=== PATIENT | female | born 1990 | race Caucasian/White ===

== ENCOUNTER 2017-01-20 17:55 | Emergency (ER) | payer OTHER ==
--- NOTE | ~2017-01-20 | CT2 ---
[facility] A Service of [facility] / [facility] RADIOLOGY TEXT RESULTS PATIENT: REJI CHOW LOCATION: SED : [birth year] UNIT #: [id number] AGE: [address]: JOHANA LIZARRAGA SEX: F ORDER DR: [id number] [address] [address] [id number] E MR#: [id number] Acc #: [id number] NAME: REJI CHOW : 1990 SEX: F STUDY DATE/TIME: 01/20/2017 20:02 UNIT: SED ROOM: STUDY DESCRIPTION: CT Abd and Pelv W Cont Attending Physician: Johana Lizarraga Ordering Physician: Johana Lizarraga Primary Care Physician: No Primary Care Physician MEDICAL IMAGING REPORT This report is preliminary unless electronic signature is present. EXAM CT abdomen and pelvis with IV contrast HISTORY Mid abdomen pain, nausea and vomiting for [address] abdomen and pelvis was performed with IV contrast. This CT exam was performed with one or more of the following radiation dose reduction techniques: automatic control, adjustment of mA and/or kV according to patient size, and iterative reconstruction. CT ABDOMEN: The liver, gallbladder, spleen, pancreas, kidneys, and adrenal glands are normal. No bowel dilatation. No ascites. No adenopathy. Normal caliber abdominal aorta. Normal appendix. CT PELVIS: Mild sigmoid diverticulosis but no diverticulitis. Bilateral ovarian cysts, measure up to 4.4 cm in the left ovary, and are compatible with incidental physiologic cyst. No free fluid. The uterus is unremarkable. Urinary bladder is normal. IMPRESSION 1. No acute findings in the abdomen or pelvis. 2. Mild sigmoid diverticulosis but no diverticulitis. 3. Normal appendix. 4. No urinary obstruction or bowel obstruction. 5. Incidental bilateral ovarian cysts measure up to 4.4 cm on the left. Dictated by... Aubrey Sebastian M.D. THIS IS AN ELECTRONICALLY VERIFIED REPORT [facility] A Service of [facility] / [facility] RADIOLOGY TEXT RESULTS PATIENT: REJI CHOW LOCATION: [facility] [place] : [birth year] UNIT #: [id number] AGE: [address]: JOHANA LIZARRAGA SEX: F ORDER DR: Aubrey Sebastian M.D. at 01/21/2017 11:43 AM CRISTINA/jimmy TD: 01/20/2017 23:44 JOB #: [id number] MEDICAL IMAGING REPORT Page 1 of 1
[~2017-01-20 17:55] MED LIST: AMOXICILLIN500 M1 PO; BACTRIM DS PO; BACTRIM DS TABL1 TA1 DOB; BACTRIM DS TABL1 TA1 PO; BACTROBAN22 GM; BACTROBAN22 GM EXT; BACTROBAN22 GM TOP; CIPRO PO; CLEOCIN150 M1 PO; FAMOTIDINE PO; FLAGYL PO; KEFLEX PO; LORTAB 5/500 TA1 TA1 PO; NO MEDICATIONS; NORCO1 TAB 10/3 PO; PHENERGAN PO; PHENERGAN25 M1 PO; PHENERGAN25 MG PO; PREDNISONE PO; PRENATAL1 TA1 PO; PROMETHAZINE V120 M1 PO; TETRACYCLINE PO; VIBRAMYCIN100 M1 PO; VOLTAREN50 MG PO; ZOFRAN ODT4 MG PO; ZOFRAN PO
[2017-01-20 19:14] LABS: BASOPHIL# 0.1 X10e3 (0-0.3); BASOPHIL% 0.5 % (0-2.5); EOSINOPHIL# 0.3 X10e3 (0-0.7); EOSINOPHIL% 2.6 % (0.0-7.0); HEMATOCRIT 44.5 % (35.0-45.0); HEMOGLOBIN 14.6 gm/dL (12.0-16.0); LYMPHOCYTE# 2.3 X10e3 (1.0-3.5); LYMPHOCYTE% 20.7 % (17.0-45.0); MEAN CORPUSCULAR HEMOGLOBIN 28.8 PG (28-34); MEAN CORPUSCULAR HGB CONC 32.7 g/dL (30-36); MEAN PLATELET VOLUME 8.8 FL (6.5-11.5); MONOCYTE# 0.7 X10e3 (0-1.0); MONOCYTE% 6.1 % (3.0-12.0); NEUTROPHIL# 7.9 X10e3 (1.5-7.1); NEUTROPHIL% 70.1 % (40-75); PLATELET COUNT 260 X10e3 (140-420); RED BLOOD COUNT 5.06 X10e (3.90-5.30); RED CELL DISTRIBUTION WIDTH 13.3 % (11.0-15.5); WHITE BLOOD COUNT 11.3 X10e3 (4.0-10.5)
[2017-01-20 19:16] LABS: DIFF IND NO
[2017-01-20 19:20] LABS: URINE SOURCE CLEAN CATCH
[2017-01-20 19:22] LABS: MICRO INDICATED? NO; URINE APPEARANCE CLEAR; URINE BILIRUBIN NEG (NEG); URINE BLOOD NEG (NEG); URINE COLOR YELLOW; URINE GLUCOSE NEG (NORM); URINE KETONE NEG (NEG); URINE LEUKOCYTE ESTERASE NEG (NEG); URINE NITRATE NEG (NEG); URINE PROTEIN NEG (NEG); URINE SPECIFIC GRAVITY 1.025 (1.003-1.035); URINE UROBILINOGEN 0.2 MG/DL (NORM)
[2017-01-20 19:29] LABS: ALBUMIN SERUM 3.7 g/dL (3.5-5.0); BILIRUBIN, DIRECT 0.1 mg/dL (0.0-0.2); BILIRUBIN,TOTAL 0.1 mg/dL (0.2-2.0); BUN/CREATININE RATIO 12.85; CALCIUM SERUM 8.7 mg/dL (8.4-10.2); CREATININE SERUM 0.7 mg/dL (0.6-1.4); GLOM FILT RATE Estimated 121.3 mL/min (>60); POTASSIUM 3.6 mmol/L (3.5-5.1); PROTEIN TOTAL SERUM 6.7 g/dL (6.0-8.3)
== END 2017-01-20 21:37 | disposition home or self-care (01) ==
LOC: SED 17:55
PROVIDERS: Physician Assistant
DX: R10.13 Epigastric pain (principal); R11.2 Nausea with vomiting, unspecified; K21.9 Gastro-esophageal reflux disease without esophagitis; F17.210 Nicotine dependence, cigarettes, uncomplicated
CPT/HCPCS: 36415; 74177; 80048; 80076; 81003; 83690; 84703; 85025; 96361; 96374; 99284; J2405; Q9967

== ENCOUNTER 2017-02-10 16:49 | Emergency (ER) | payer OTHER | END 2017-02-10 18:07 | disposition home or self-care (01) | LOC: SED 16:49 | DX: L03.116 Cellulitis of left lower limb (principal); K21.9 Gastro-esophageal reflux disease without esophagitis; F17.200 Nicotine dependence, unspecified, uncomplicated | CPT/HCPCS: 87070; 87077; 87186; 87205; 99282 ==

== ENCOUNTER 2017-02-12 17:22 | Emergency (ER) | payer OTHER | END 2017-02-12 18:25 | disposition home or self-care (01) | LOC: SED 17:22 | DX: L02.416 Cutaneous abscess of left lower limb (principal); K21.9 Gastro-esophageal reflux disease without esophagitis; F17.210 Nicotine dependence, cigarettes, uncomplicated; Z23 Encounter for immunization | CPT/HCPCS: 90471; 90715; 99282 ==